=== PATIENT | female | born 1930 | race Caucasian/White ===

== ENCOUNTER 2018-03-29 21:14 | Emergency (ER) | payer MEDICARE, BC ==
[~2018-03-29] VITALS: Ht 165.1 cm; Wt 72.6 kg
--- NOTE | 2018-03-29 22:36 | Emergency Room Report ---
History of Present Illness General Chief Complaint: Multiple Trauma/Fall Source: Medical Record, EMS Present Illness HPI Is an 87-year-old female with a history of dementia. She lives in a shelter. She presents with head injury from a fall. She follow last week but did not go to the hospital. She fell again tonight. She doesn't remember what happened. She has an abrasion to his cheek it along with periorbital ecchymosis bilaterally. Unknown loss of consciousness. No other injury. Allergies: Coded Allergies: ERYTHROMYCIN BASE (Verified Allergy, Unknown, 03/29/18) Patient History Past Medical History: see triage record, old chart reviewed Past Surgical History: other Pertinent Family History: none Social History: Denies: smoking Last Menstrual Period: Postmenopausal Now: No Immunizations: other Reviewed Nursing Documentation: PMH: Agreed; PSxH: Agreed Nursing Documentation-PMH Past Medical History: No History, Except For History Of Psychiatric Problem: Yes - Alzheimer's, Dementia, Chronic depression , Insomnia Review of Systems Eye: Denies: eye pain, blurred vision ENT: Denies: ear pain, nose congestion, throat swelling Respiratory: Denies: cough, shortness of breath Cardiovascular: Denies: chest pain, palpitations Gastrointestinal: Denies: abdominal pain, diarrhea, nausea, vomiting Musculoskeletal: Denies: back pain, joint pain Skin: Denies: rash Neurological: Denies: headache, numbness Endocrine: Denies: increased thirst, increased urine Hematologic/Lymphatic: Denies: easy bruising All Other Systems: negative except mentioned in HPI Physical Exam Vital Signs Date Time Temp Pulse Resp B/P (MAP) Pulse Ox O2 Delivery O2 Flow Rate FiO2 03/29/18 21:08 69 16 154/82 97 Room Air vitals with high blood pressure Sp02 EP Interpretation: reviewed, normal General Appearance: well appearing, no apparent distress, alert Head: normocephalic, other - Left scalp hematoma Eyes: bilateral eye PERRL, bilateral eye EOMI, bilateral eye other - Left Periorbital ecchymosis. Small periorbital ecchymosis to the right eye ENT: hearing grossly normal, normal pharynx, other - Abrasion to left cheek Neck: full range of motion, supple, no meningismus Respiratory: chest non-tender, lungs clear, normal breath sounds Cardiovascular #1: regular rate, rhythm, no murmur Gastrointestinal: normal bowel sounds, non tender, no mass, no organomegaly, no bruit, non-distended Musculoskeletal: back normal, gait/station normal, normal range of motion Psychiatric: mood/affect normal Skin: warm/dry Medical Decision Making Diagnostic Impression: Primary Impression: Head injury, acute Qualified Codes: S09.90XA - Unspecified injury of head, initial encounter Additional Impression: Hematoma of frontal scalp Qualified Codes: S00.03XA - Contusion of scalp, initial encounter ER Course Patient with soft tissue injury from a fall. She is a fall risk. We'll need better monitoring at the shelter. No evidence of any fracture or intracranial bleed. We'll discharge back to shelter. Last Vital Signs Date Time Temp Pulse Resp B/P (MAP) Pulse Ox O2 Delivery O2 Flow Rate FiO2 03/29/18 21:08 69 16 154/82 97 Room Air Status: improved Disposition: ASSISTED LIVING Condition: Stable Additional Instructions: Patient is a fall risk. Follow-up with your doctor in 7 days. Return if worse. ANUPAM NAVARRO M.D. Mar 29, 2018 22:36
[2018-03-29 23:53] VITALS: BP 154/82
[2018-03-29 23:54] VITALS: BP 154/82
--- NOTE | 2018-03-30 09:19 | Diagnostic Imaging Report ---
Indication: Head trauma, status post fall, pain Technique: spiral acquisitions obtained through the brain. Angled axial and coronal 5 x 5 mm slices were reconstructed. No IV contrast utilized. Radiation dose was minimized using automated exposure control Total dose length product 1382.95 mGycm. CTDIvol(s) 70.38 mGy Comparison: none FINDINGS: No acute hemorrhage or edema. No mass effect or midline shift. There is age-related enlargement of the ventricles and extra axial CSF spaces. There is periventricular deep white matter ischemic change. Normal sykes-white differentiation. Visualized orbits are unremarkable. Visualized sinuses are unremarkable. Intact calvarium. There is a left supraorbital scalp hematoma, small. IMPRESSION: Chronic and age-related changes. Negative for acute intracranial bleed or mass effect Small left supraorbital scalp hematoma This agrees with the preliminary interpretation provided overnight by [facility]. The CT scanner at [facility] is accredited by the [employer] and the scans are performed using protocols designed to limit radiation exposure to as low as reasonably achievable to attain images of sufficient resolution adequate for diagnostic evaluation
== END 2018-03-29 23:54 | disposition home or self-care (01) ==
LOC: EDBD 21:14 → EMR 21:54
DX: S00.81XA Abrasion of other part of head, initial encounter (principal); S00.03XA Contusion of scalp, initial encounter; W19.XXXA Unspecified fall, initial encounter; Y92.9 Unspecified place or not applicable; F32.9 Major depressive disorder, single episode, unspecified; G30.9 Alzheimer's disease, unspecified; F02.80 Dementia in other diseases classified elsewhere, unspecified severity, without behavioral disturbance, psychotic disturbance, mood disturbance, and anxiety; Z88.1 Allergy status to other antibiotic agents
CPT/HCPCS: 70450; 99284